=== PATIENT | male | born 1995 | race Caucasian/White ===

== ENCOUNTER → 2020-07-25 08:04 | Outpatient (CLI) | payer OTHER, SELFPAY ==
--- NOTE | ~2020-07-25 | US_ITS ---
US right upper quadrant INDICATION: Right upper quadrant pain. Diarrhea. PROCEDURE: Realtime right upper abdominal ultrasound. COMPARISON: No prior studies for comparison. FINDINGS: The pancreas is normal without focal mass or pancreatic ductal dilation. Liver echotexture is normal without focal mass or intrahepatic biliary dilatation. There is normal directional flow i n the portal vein. The gallbladder is normal without stones, gallbladder wall thickening or pericholecystic fluid. Comm on bile duct measures 3 mm. No sonographic Rivera's sign. IMPRESSION: 1: Normal limited abdominal ultrasound. Reviewed, dictated and finalized at location B.
== END ==
PROVIDERS: Visit Provider Nurse Practitioner Family
DX: R10.11 Right upper quadrant pain (principal)
CPT/HCPCS: 76705

== ENCOUNTER 2023-05-08 08:23 | Outpatient (CLI) | payer OTHER, SELFPAY ==
--- NOTE | 2023-05-19 20:02 | WPDHOMESLEEP ---
Sleep Study - Home Unattended Date of Study: 05/08/23 Ordering Provider: Lorraine Breen, MAJOR DONOR COORDINATOR- Interpreting Provider: Kathy Gastelum, DO Home Sleep Study Type: Watch PAT Height: 1.83 m Weight: 115.666 kg Body Mass Index: 34.5 Neck Circumference (inches): 15.5 [place]: 9 Reason for Sleep Study Daytime hypersomnia Sleep History The patient is a 27-year-old male with GERD, low back pain, depression, anxiety and obesity that had a sleep study ordered by his primary care for evaluation of sleep. The patient denies awakening from sleep short of breath. He frequently awakens at night with heartburn, belching or cough. He frequently snores and is frequently loud enough that others complain. He frequently has trouble sleeping when he has a cold. He denies waking up gasping for air throughout the night. He rarely has breathing problems at night observed by himself or others. He frequently sweats excessively at night. He denies having heart palpitations or irregular heartbeats during the night. He occasionally falls asleep during the day but never while driving. He rarely experiences loss of muscle tone when extremely emotional. He occasionally has trouble at school or work due to sleepiness. He denies feeling unable to move when waking up or falling asleep. He rarely experiences vivid dreamlike scenes upon awakening or falling asleep. He denies feeling afraid of going to sleep. He rarely has nightmares. He occasionally remembers his dreams. He frequently has thoughts racing through his mind. He frequently feels sad, depressed and anxious. He occasionally has muscular tension and occasionally notices parts of his body jerk. He rarely kicks during the night. He denies having crawling and aching feelings in his legs and denies having leg pain during the night. He occasionally grinds his teeth during sleep but rarely awakens with morning jaw pain. He is rarely bothered by pain during the day and never awakened by pain during the night. He rarely wakes up feeling stiff in the morning. He rarely wakes up with sore or achy muscles. He rarely wakes up with pain in the neck, spine or other joints. He goes to bed between 8-9 p.m. on weekdays and between 10-11 p.m. on the weekends. It takes him about 15 minutes to fall asleep. He typically does not wake up throughout the night. He wakes up at 4:45 a.m. on weekdays and at 5:30 a.m. on the weekends. He typically gets 6-8 hours of sleep per night. He will stay in bed for 5 minutes after waking up in the morning. He currently lives with his girlfriend. He denies consuming any caffeinated beverages within 2 hours of bedtime. He denies engaging in physical exercise before bedtime. He we will watch television before falling asleep. He denies taking naps in the afternoon or the evening. He consumes 200 mg of caffeine per day. He denies tobacco and alcohol use. He currently uses marijuana. Sleep Procedure The sleep study was completed using FTRANST a technically adequate device with seven channels: peripheral arterial tone, actigraphy, body position, snore, respiratory movement, pulse oximetry, sleep staging, and heart rate. Prior to using the device, the patient received verbal and written instructions for its application and was provided with the help desk phone number for additional telephonic instruction with 24-hour availability of qualified personnel to answer questions. The study was scored using [facility] guidelines. Sleep Architecture The patient had a total recording time of 7 hours 48 minutes and a total sleep time of 5 hours 44 minutes. The sleep efficiency was 73.44%. The sleep latency was 17 minutes and the REM latency was 129 minutes. The patient had 16 awakenings. The patient spent 62.82% of total sleep time in light sleep, 19.61% of total sleep time in deep sleep and 17.57% of total sleep time in REM sleep. The patient spent 191.3 minutes, 55.6% of total sleep time in the supin
[2023-05-19 20:07] VITALS: BMI 34.5
== END 2023-05-11 09:58 | disposition home or self-care (01) ==
LOC: ANHCSM 08:26
PROVIDERS: PCP Nurse Practitioner Family; Visit Provider Nurse Practitioner Family
DX: G47.10 Hypersomnia, unspecified (principal)
CPT/HCPCS: 95800